=== PATIENT | male | born 1945 | race Caucasian/White ===

== ENCOUNTER 2017-03-05 12:02 | Day surgery (SDC) | payer MEDICARE, BC ==
[2017-03-05] MEDS ORDERED: PROPOFOL 10 MG/ML VIAL IV ONE (12:03)
[2017-03-05] MEDS ORDERED: LIDOCAINE 2% MDV (20MG/ML) 20ML VIAL IV ONE (12:03)
--- NOTE | 2017-03-06 12:40 | Operative Note ---
DATE OF SURGERY: 03/05/2017 OPERATION: ESOPHAGOGASTRODUODENOSCOPY with biopsy. PREOPERATIVE DIAGNOSIS: Domingo's. POSTOPERATIVE DIAGNOSES: 1. Domingo's. 2. Hiatal hernia. 3. Gastric polyps. PROCEDURE: After informed consent was obtained from the patient, he was placed in the left lateral decubitus position in the endoscopy suite, sedated and monitored by the department of anesthesia. Once sedated, a well-lubricated HWG510 gastroscope was placed in the posterior oropharynx and under direct visualization passed to the proximal, mid, and distal esophagus. In the distal esophagus there was proximal migration of the columnar border with associated columnar islands consistent with Domingo's. No nodules, ulcers, or inflammation seen. No mass lesions seen. No strictures were seen. There was a small hiatal hernia. The subdiaphragmatic stomach demonstrated normal distensibility, normal rugal folds. There were scattered gastric polyps in the body and fundus. The antrum and pylorus as well as duodenal bulb and sweep were unremarkable. J-turn views of the proximal stomach revealed multiple polyps and hiatal hernia. The endoscope was straightened. Distal esophageal biopsies obtained. The endoscope was removed from the patient with no new findings noted. RECOMMENDATIONS: I suggest the patient resume his medications and diet. I did refill his omeprazole 20 mg twice daily for 1 year. If no dysplasia is found, repeat upper endoscopy in 3 years would be suggested. As always, thank you for allowing me to participate in the healthcare of your patients. CC: Dr. Andrez MARIE
== END 2017-03-05 13:35 | disposition home or self-care (01) ==
LOC: HOP 12:02
PROVIDERS: ATTEND Internal Medicine Gastroenterology
DX: K22.70 Barrett's esophagus without dysplasia (principal); K44.9 Diaphragmatic hernia without obstruction or gangrene; K31.7 Polyp of stomach and duodenum; E78.00 Pure hypercholesterolemia, unspecified